=== PATIENT | male | born 1990 | race Caucasian/White ===

== ENCOUNTER 2022-08-20 09:50 | Emergency (ER) | payer OTHER, SELFPAY ==
--- NOTE | ~2022-08-20 | CT_ITS ---
EXAMINATION: CT abdomen pelvis w con DATE: 08/20/2022 11:38 INDICATION: Lower abdominal pain for 3 months TECHNIQUE: Computed tomography (CT) of the abdomen and pelvis was performed with 100 cc Omnipaque 350 intravenous contrast. The dose-length product was 591.52 mGy-cm. Automated exposure control and iter ative reconstruction technique were employed. COMPARISON: None. FINDINGS: Lung bases are unremarkable. Heart size normal. There is a hiatal hernia with fluid in the distal esophagus, likely secondary to reflux. No significant pleural or pericardial effusion. No sign ificant vascular abnormality. No lymphadenopathy. Nonobstructive bowel pattern. Fatty infiltration of the liver. Gallbladder is present. The spleen, pancreas, adrenal glands and kidneys are unremarkable . There is mild thickening of the small bowel, particularly the duodenum and jejunum, suspicious for enteritis. No obstruction. No free air or free fluid. No acute osseous abnormality. IMPRESSION: 1. Abnormal thickening with mucosal enhancement of the small bowel, particularly the duodenum and jej unum, suspicious for enteritis. No obstruction. 2: Small hiatal hernia with probable reflux. Reviewed, dictated and finalized at location B. IMPRESSION: 1. Abnormal thickening with mucosal enhancement of the small bowel, particularl y the duodenum and jejunum, suspicious for enteritis. No obstruction. 2: Small hiatal hernia with probable reflux.
[2022-08-20 10:15] VITALS: BP 139/100; PULSE 88; RESP 16; TEMP 36.5; O2SAT 100
--- NOTE | 2022-08-20 10:58 | ED.ABDPAIN ---
HPI - Abdominal Pain General Chief Complaint: Abdominal Pain Stated Complaint: abd pain Time Seen by Provider: 08/20/22 10:46 History of Present Illness HPI narrative: 31-year-old male no medical problems presents to the emergency room for evaluation of lower abdominal pain for 3 months. Patient states that he was seen at an outside convenient care several weeks ago, had urine studies evaluated. Stated that there was no positive findings. Patient states there are no alleviating or aggravating factors to his abdominal pain. Has been nauseated occasionally. Denies any diarrhea or constipation fevers. States recently the pain has began to radiate to his lower back. Denies any abdominal surgeries. Denies dysuria. Related Data Allergies Allergy/AdvReac Type Severity Reaction Status Date / Time No Known Allergies Allergy Verified 08/20/22 11:15 Review of Systems Review of Systems: CONSTITUTIONAL: Denies fever, chills, or sweats. EYES: Denies visual changes, redness, or discharge. ENT: Denies rhinorrhea, congestion, sore throat, or otalgia. CARDIOVASCULAR: Denies chest pain, palpitations, or edema. RESPIRATORY: Denies cough or dyspnea. GASTROINTESTINAL: Reports lower abdominal pain per HPI GENITOURINARY: Denies dysuria or hematuria. SKIN: Denies rash or itching. MUSCULOSKELETAL: Denies back pain, joint pain, or myalgia. NEUROLOGIC: Denies headache, numbness, dizziness, or weakness. PSYCHIATRIC: Denies anxiety or depression. Exam Narrative: GENERAL: Well-appearing, well-nourished, no physical limitations, and in no acute distress. HEAD: Normocephalic, atraumatic. EYES: Conjunctivae normal, PERRLA and EOMI. CHEST: Clear to auscultation. No respiratory distress. No wheezes rales or rhonchi. HEART: Regular rate and rhythm. No murmur heard. Normal peripheral pulses. ABDOMEN: Soft, periumbilical tenderness, bowel sounds present x4 BACK: No CVA tenderness EXTREMITIES: Normal range of motion. No edema. No clubbing or cyanosis SKIN: Warm, dry, no rash. No noted wounds NEURO: No focal deficits. Alert and oriented x3. MAEW. CN's II-XI intact bilaterally, normal gait PSYCH: Cooperative. Normal mood and affect. Course Vital Signs Vital signs: Vital Signs Temperature 36.5 C 08/20/22 10:15 Pulse Rate 88 08/20/22 10:15 Respiratory Rate 16 08/20/22 10:15 Blood Pressure 139/100 H 08/20/22 10:15 Pulse Oximetry 100 08/20/22 10:15 Temperature 36.5 C 08/20/22 10:15 Pulse Rate 88 08/20/22 10:15 Respiratory Rate 16 08/20/22 10:15 Blood Pressure 139/100 H 08/20/22 10:15 Pulse Oximetry 100 08/20/22 10:15 MDM - Abdominal Pain MDM Narrative Medical decision making narrative: 31-year-old male presented to the emergency room for evaluation of abdominal pain that he has had for 3 months. Exam showed no signs of peritonitis. No evidence of acute appendectomy. Patient is well-appearing and nontoxic. Work-up was low suspicion for any hepatobiliary disease, acute pancreatitis, PUD or infectious process. Lab work was unremarkable, CT scan showed possible enteritis. Will discharge patient home with follow-up to internal medicine and GI. Will trial patient on a course of omeprazole and some dicyclomine. Lab Data 08/20/22 11:17 08/20/22 11:28 Labs: Lab Results 08/20/22 08/20/22 08/20/22 Range/Units 11:17 11:28 11:55 WBC 6.0 (4.5-10.0) K/mm3 RBC 5.38 (4.6-6.20) M/mm3 Hgb 15.8 (14.0-18.0) g/dL Hct 45.6 (42.0-52.0) % MCV 84.8 (80-100) fl MCH 29.4 (26-34) pg MCHC 34.6 (32-36) g/dl RDW 13.2 (11.5-14.5) % Plt Count 218 (150-375) k/mm3 MPV 9.6 (7.4-10.4) fl Immature Gran % (Auto) 0.3 (0-0.5) % Neut % (Auto) 56.0 (45.5-73.1) % Lymph % (Auto) 27.8 (18.3-44.2) % [place] % (Auto) 8.7 H (2.6-8.5) % Eos % (Auto) 6.2 H (0-4.4) % Baso % (Auto) 1.0 (0.2-1.2) % Lymph # (Auto) 1.66 (0.9-3.2) K
[2022-08-20] MEDS: SODIUM CHLORIDE 0.9% IV 1,000 ML 999 ML IV CONT (11:13)
[2022-08-20 11:31] LABS: Estimated Glomerular Filt Rate > 60
[2022-08-20 11:35] LABS: Basophils Absolute Auto 0.1 K/mm3 (0.0-0.1); Eosinophils Absolute Auto 0.4 K/mm3 (0-0.3); Eosinophils Percent Auto 6.2 % (0-4.4); Hematocrit 45.6 % (42.0-52.0); Hemoglobin 15.8 g/dL (14.0-18.0); Immature Granulocyte Absolute 0.02 K/mm3 (0.00-0.031); Immature Granulocyte Percent A 0.3 % (0-0.5); Lymphocytes Absolute Auto 1.66 K/mm3 (0.9-3.2); Lymphocytes Percent Auto 27.8 % (18.3-44.2); Mean Corpuscular HGB Conc 34.6 g/dl (32-36); Mean Corpuscular Hemoglobin 29.4 pg (26-34); Mean Corpuscular Volume 84.8 fl (80-100); Mean Platelet Volume 9.6 fl (7.4-10.4); Monocytes Absolute Auto 0.5 K/mm3 (0.1-0.6); Monocytes Percent Auto 8.7 % (2.6-8.5); Neutrophils Absolute Auto 3.4 K/mm3 (1.3-6.7); Platelet Count Result 218 k/mm3 (150-375); Red Blood Count 5.38 M/mm3 (4.6-6.20); Red Cell Distribution Width 13.2 % (11.5-14.5)
[2022-08-20 11:49] LABS: Alanine Aminotransferase 43 U/L (6-50); Albumin Level 4.8 g/dL (3.5-5.1); Alkaline Phosphatase 69 U/L (38-126); Anion Gap 6 mmol/L (8-16); Aspartate Amino Transferase 32 U/L (17-59); Bilirubin,Total 0.9 mg/dL (0.2-1.3); Blood Urea Nitrogen 12 mg/dL (9-20); Calcium 8.8 mg/dL (8.4-10.2); Carbon Dioxide 29 mmol/L (22-30); Chloride 102 mmol/L (98-107); Estimated Glomerular Filt Rate > 60; Glucose 89 mg/dL (65-110); Lipase 83 U/L (23-300); Potassium 4.2 mmol/L (3.4-5.0); Sodium 137 mmol/L (137-145)
[2022-08-20 12:17] LABS: Appearance Urine Clear (Clear); Bacteria Urine None Seen /hpf; Bilirubin Urine 1+ (Negative); Blood Urine Negative (Negative); Color Urine Dark Yellow (Yellow); Glucose Urine UA Negative (Negative); Ketones Urine Trace mg/dL (Negative); Leukocyte Esterase Ur Negative LEU/UL (Negative); Mucus Urine Present /lpf; Nitrate Urine Negative (Negative); Non Pathogenic Casts 0-2; Protein Urine Trace mg/dL (Negative); RBC Urine 0-2 /hpf (0-2); Squamous Epithelial Cell Urine None seen /hpf (Few); WBC Urine 0-5 /hpf; pH Urine 5.5 (5.0-9.0)
[2022-08-20 12:32] LABS: Add Urine Microscopic? YES; Specific Grav Ur 1.038 (1.001-1.035)
[2022-08-20 12:37] VITALS: BP 133/89; PULSE 81; RESP 15; O2SAT 99
== END 2022-08-20 12:38 | disposition home or self-care (01) ==
PROVIDERS: Emergency Provider Nurse Practitioner Family
DX: K52.9 Noninfective gastroenteritis and colitis, unspecified (principal); K44.9 Diaphragmatic hernia without obstruction or gangrene
CPT/HCPCS: 74177; 80053; 81001; 83690; 85025; 96360; 99284; J7030; Q9967

== ENCOUNTER 2022-10-02 01:32 | Day surgery (SDC) | payer OTHER, SELFPAY ==
[2022-09-25 11:37] VITALS: BMI 28.8
--- NOTE | 2022-10-01 20:31 | P.HP_ITS ---
History of Present Illness History of Present Illness Consent: Risks, benefits, and alternatives have been discussed and questions answered. Patient agrees to proceed with procedure. Chief complaint: gastroenteritis colitis, nausea,Abdomin.pain, Narrative: Reyes Perez II is a 31 year old male here for evaluation of abdominal pain and nausea for past 3 months. He eventually followed up at [facility] on 08/20/[address] revealed 1).?Abnormal thickening with mucosal enhancement of the small bowel, particularly the duodenum and jejunum, suspicious for enteritis. No obstruction. 2:? Small hiatal hernia with probable reflux. CBC/CMP fairly unremarkable and Lipase WNL's. He was discharged on omeprazole 20 mg and dicyclomine. Omeprazole was increase to 40 mg daily last week per PCP and he is no longer taking the dicyclomine. He does report some mild constipation since starting the dicyclomine. Abdominal pain located in the lower to mid abdomen that tends to be worse after eating but can not identify any particular foods. Review of Systems Review of Systems: All systems reviewed & are unremarkable except as noted in HPI and below PMFSH Past Medical History Medical History Nausea Social History Social History Smoking status: Never smoker Alcohol intake: current Alcohol use details: 2X monthly Substance use type: does not use Living arrangements: alone Spiritual care concerns: No Meds Home Medications and Allergies Home Medications Medication Instructions Recorded Confirmed Type omeprazole 40 mg capsule,delayed 40 mg PO DAILY 09/01/22 09/25/22 History release venlafaxine 225 mg tablet,extended 225 mg PO DAILY 09/25/22 09/25/22 History release 24 hr Allergies Allergy/AdvReac Type Severity Reaction Status Date / Time No Known Allergies Allergy Verified 10/02/22 08:02 Exam Const: General: alert Orientation/consciousness: patient oriented x3 Resp: Auscultation: clear to auscultation bilaterally Cardio: Rhythm: regular rhythm GI: GI Palp: Yes Soft to palpation and No Tenderness to palpation present (GI) Neuro: General: patient oriented x3 Assessment and Plan Assessment and plan (1) Nausea: Code(s): R11.0 - Nausea Status: Acute Assessment and Plan: EGD with possible biopsy or dilatation or cautery. (2) Change in bowel habits: Code(s): R19.4 - Change in bowel habit Status: Acute Assessment and Plan: Colonoscopy with possible biopsy or polypectomy or cautery or injection of substances.
[2022-10-02 08:03] VITALS: BP 130/94; PULSE 104; RESP 18; TEMP 36.1; O2SAT 98
[2022-10-02] MEDS: LACTATED RINGERS 1,000 ML 150 ML IV CONT (08:13)
[2022-10-02 08:26] LABS: Glucose Point of Care 101 mg/dl (65-105)
--- NOTE | 2022-10-02 09:00 | SUR.PREOP ---
0835: PT CALLED STATING HE FEELS NAUSEOUS, LIGHTHEADED, AND SHAKEY. PT APPEARS PALE. PT LAID FLAT IN HIS STRETCHER, IV FLUIDS OPENED WIDE OPEN, COLD WASH RAG TO FOREHEAD. BLOOD SUGAR 101. DR CAMPO MADE AWARE AND WILL SEE PT. NO NEW ORDERS RECEIVED. GRANDMA AT BEDSIDE. PT CONTINUES TO BE AWAKE, ALERT, AND TALKING. 0845: PT STATES HE IS FEELING BETTER, REMAINS LAYING WITH IV FLUIDS GOING. 0900: PT STATES HE IS FEELING EVEN BETTER, IV FLUIDS DECREASED TO KVO, PT WALKED TO BATHROOM WITHOUT DIFFICULTY.
--- NOTE | 2022-10-02 09:03 | P.PNAN_ITS ---
Anes - Initial Pre Proc Eval Procedure: Operation Date: 10/02/22 09:15 Proposed Procedures p Esophagogastroduodenoscopy & Colonoscopy - Govind Meeks MD Date/Time: 10/02/22 09:03 Surgeon: Govind Meeks MD Pre Op Diagnosis: gastroenteritis colitis, nausea,Abdomin.pain, Patient Data Age: 31 Gender: M Height: 1.68 m Weight: 79 kg Last Vital Signs Temp 97 F L 10/02/22 08:03 Pulse 104 H 10/02/22 08:03 Resp 18 10/02/22 08:03 BP 130/94 H 10/02/22 08:03 Pulse Ox 98 10/02/22 08:03 O2 Del Method Room Air 10/02/22 08:03 Allergies Allergy/AdvReac Type Severity Reaction Status Date / Time No Known Allergies Allergy Verified 10/02/22 08:02 Home Medications Medication Instructions Recorded Confirmed Type omeprazole 40 mg capsule,delayed 40 mg PO DAILY 09/01/22 09/25/22 History release venlafaxine 225 mg tablet,extended 225 mg PO DAILY 09/25/22 09/25/22 History release 24 hr Laboratory Tests 10/02/22 08:24 POC Capillary Glucose 101 mg/dl (65-105) Patient hx anesthesia problems: none Family hx anesthesia problems: none Results Review: All pre-operative results and documents have been reviewed as part of the pre- operative evaluation. [facility] Past Medical History Medical History (Updated 10/01/22 @ 20:31 by Govind Meeks MD) Nausea Social History Social History Smoking status: Never smoker Alcohol intake: current Alcohol use details: 2X monthly Substance use type: does not use Living arrangements: alone Spiritual care concerns: No Anes - Eval Final PreProcedure Day of Procedure 10/02/22 09:03 Patient weight: normal Heart: regular rate and rhythm Lungs: clear to auscultation Airway: Mallampati scale class II Neurological: alert and oriented Last oral intake: >/= 8 hours ASA classification: II Emergent: no Anesthetic plan: proceed Anesthesia type and monitoring: general GIVS and standard monitoring Results Review: All pre-operative results and documents have been reviewed as part of the pre- operative evaluation. Informed Consent: The patient's anesthetic plan and its attendant risks and benefits were discussed with the patient/family/POA. Questions were solicited and answers provided to the satisfaction of the patient/family/POA.
--- NOTE | 2022-10-02 09:34 | SUR.OPER ---
egd ended at 926 and colonoscopy started at 934
[2022-10-02 09:43] VITALS: BP 103/67; PULSE 83; RESP 21; O2SAT 96
[2022-10-02 09:53] VITALS: BP 103/66; PULSE 85; RESP 23; O2SAT 95
[2022-10-02 10:03] VITALS: BP 120/77; PULSE 90; RESP 17; O2SAT 95
== END 2022-10-02 10:13 | disposition home or self-care (01) ==
PROVIDERS: PCP Emergency Medicine; Visit Provider Internal Medicine Gastroenterology
PROC: 0DJ08ZZ Inspection of Upper Intestinal Tract, Via Natural or Artificial Opening Endoscopic (ICD-10-PCS; CPT 43235; principal; 2022-10-02 09:15)
DX: R11.0 Nausea (principal); R19.4 Change in bowel habit; R93.3 Abnormal findings on diagnostic imaging of other parts of digestive tract; R10.9 Unspecified abdominal pain; Z79.899 Other long term (current) drug therapy
CPT/HCPCS: 45378; 43239; 82948; 88305; J2704; J7120

== ENCOUNTER 2022-10-27 06:02 | Outpatient (CLI) | payer OTHER, SELFPAY | END 2022-10-27 06:03 | disposition home or self-care (01) | PROVIDERS: PCP Emergency Medicine; Visit Provider Internal Medicine Gastroenterology | PROC: 0DJ07ZZ Inspection of Upper Intestinal Tract, Via Natural or Artificial Opening (ICD-10-PCS; CPT 91110; principal; 2022-10-27 07:00) | DX: K52.9 Noninfective gastroenteritis and colitis, unspecified (principal); Z01.818 Encounter for other preprocedural examination | CPT/HCPCS: 99199 ==

== ENCOUNTER 2022-10-28 12:03 | Outpatient (CLI) | payer OTHER, SELFPAY ==
--- NOTE | ~2022-10-28 | XR_ITS ---
EXAMINATION: XR abdomen/kub 1V DATE: 10/28/2022 12:24 INDICATION: Patency capsule ingestion. TECHNIQUE: A supine view of the abdomen on 2 radiographs was obtained. COMPARISON: CT abdomen and pelvis 08/20/2022 FINDINGS: There are no dilated loops of bowel. There is no radiopaque foreign body. IMPRESSION: 1. No radiopaque foreign body. Reviewed, dictated and finalized at location A.
== END 2022-10-28 12:04 | disposition home or self-care (01) ==
LOC: ANHIMG 12:06
PROVIDERS: PCP Emergency Medicine; Visit Provider Internal Medicine Gastroenterology
DX: Z12.11 Encounter for screening for malignant neoplasm of colon (principal)
CPT/HCPCS: 74018

== ENCOUNTER 2022-11-10 06:05 | Outpatient (CLI) | payer OTHER, SELFPAY ==
[2022-11-10] MEDS: SIMETHICONE ORAL SUSPENSION 20 MG/0.3 ML 30 ML BOTTLE 0.6 ML IRRIGATION (06:26)
--- NOTE | 2022-11-10 06:29 | SUR.OPER ---
Patient brought to GI Lab. Instructions for patient undergoing Capsule Endoscopy reviewed with patient. Consent form signed. Sensor array applied to patient's abdomen and connected to recorded. Patient swallowed capsule with 16 ozs of water infused with Simethicone. Patient instructed they may have clear liquids at 0820 this AM and eat or drink at 1020 this AM. Patient instructed to return to GI Lab at 1500 this afternoon for removal of recording device and to call [phone] or to return to the hospital if any nausea and vomiting or abdominal pain is experienced.
== END 2022-11-10 06:06 | disposition home or self-care (01) ==
PROVIDERS: PCP Emergency Medicine; Visit Provider Internal Medicine Gastroenterology
PROC: 0DJ07ZZ Inspection of Upper Intestinal Tract, Via Natural or Artificial Opening (ICD-10-PCS; CPT 91110; principal; 2022-11-10 07:00)
DX: Z01.818 Encounter for other preprocedural examination (principal)
CPT/HCPCS: 91110